=== PATIENT | female | born 1970 | race Caucasian/White ===

== ENCOUNTER 2024-07-17 05:41 | Day surgery (SDC) | payer OTHER ==
[2024-07-17] MEDS: Lactated Ringers 1,000 ML IV SCH (06:17)
[2024-07-17 06:41] VITALS: RESP 18
[2024-07-17] MEDS ORDERED: Zofran 4 MG/2 ML VIAL ONE (07:21)
[2024-07-17] MEDS: Zofran 4 MG/2 ML VIAL IV STA (07:24)
[2024-07-17] MEDS ORDERED: Versed 2 MG/2 ML Injection ONE (07:27)
[2024-07-17] MEDS ORDERED: DIPRIVAN 200 MG/20 ML IV ONE ×2 (07:27→07:46)
[2024-07-17] MEDS ORDERED: Xylocaine-Mpf 2% 5 Ml Vial ONE (07:27)
[2024-07-17] MEDS ORDERED: DEXMEDETOMIDINE 80 MCG/20ML-NS IV ONE (07:46)
[2024-07-17 08:36] VITALS: O2SAT 99
[2024-07-17 08:48] VITALS: BP 97/65; PULSE 61; TEMP 97.6
--- NOTE | 2024-07-18 10:13 | OP ---
SURGERY DATE/TIME: 07/17/2024 [id number] PREOPERATIVE DIAGNOSIS: Screening exam. POSTOPERATIVE DIAGNOSIS: Sigmoid diverticulosis, otherwise normal colon. PROCEDURE: Colonoscopy. SURGEON: Nino Tamayo MD. ANESTHESIA: Medications were given by the anesthesia department. INDICATIONS: The patient is a 54-year-old white female presenting now for her first screening colonoscopy. She was apprised of the risks of the procedure including the risk of perforation, phlebitis, untoward reaction to medication, bleeding, and missed lesions. The patient verbalized her understanding and desired to have the procedure performed. DESCRIPTION OF PROCEDURE AND FINDINGS: Patient was given medication by the anesthesia department. She had continuous pulse oximetry, ECG monitoring, and intermittent blood pressure monitoring during the examination. She was placed in the left lateral decubitus position. Digital rectal examination was performed and revealed normal anal sphincter tone and no masses. A flexible Olympus videocolonoscope was used to intubate the rectum. A view of colon was developed sequentially to the cecum. Upon insertion and withdrawal, including retroflexion in the rectum, no mucosal lesions were noted other than mild to moderate sigmoid diverticulosis. The scope was removed from the patient who tolerated the procedure well and was sent back to outpatient recovery in good condition. The prep was noted to be fair to good. It is noted that the patient's colon was fairly tortuous and difficult to maneuver through, but we were able to manage to see the colon quite well otherwise.
== END 2024-07-17 09:00 | disposition home or self-care (01) ==
LOC: SDC 05:41
PROVIDERS: ATTEND Family Medicine
DX: Z12.11 Encounter for screening for malignant neoplasm of colon (principal); K57.30 Diverticulosis of large intestine without perforation or abscess without bleeding
CPT/HCPCS: J2250; J2405; J2704